=== PATIENT | female | born 1985 | race Caucasian/White ===

== ENCOUNTER 2016-07-11 10:30 | Emergency (ER) | payer OTHER ==
[~2016-07-11 10:30] MED LIST: ALBUTEROL MININEB NEB; ALBUTEROL17 GM INH; AZITHROMYCIN250 MG PO; FLEXERIL10 MG PO; HM ACETAMINOPH1 EAC1 PO; MEDROL DOSEPAK4 MG DOB; NAPROSYN500 MG PO; NEXIUM PO; PREDNISONE1 MG PO; PROZAC PO; PROZAC40 MG PO; SYMBICORT INH; TRAZODONE PO; VICODIN; VICODIN PO; VISTARIL PO
== END 2016-07-11 11:03 | disposition left against medical advice (07) ==
LOC: CED 10:30
DX: Z53.21 Procedure and treatment not carried out due to patient leaving prior to being seen by health care provider (principal)

== ENCOUNTER 2016-08-09 12:20 | Emergency (ER) | payer OTHER ==
--- NOTE | ~2016-08-09 | CR141 ---
[facility] A Service of [facility] & [facility] RADIOLOGY TEXT RESULTS PATIENT: DANII WILSON LOCATION: [facility] : 84 UNIT #: [id number] AGE: [address]: Jim Chris SEX: F ORDER DR: [id number] [facility] [address] [place], [place] [address] [id number] E MR#: [id number] Acc #: [id number] NAME: DANII WILSON : 1985 SEX: F STUDY DATE/TIME: 08/09/2016 UNIT: [place] ROOM: STUDY DESCRIPTION: CR Hand Min 3 Views Lt Attending Physician: Jim Chris Ordering Physician: Abhilash Phelps M.D. Primary Care Physician: [facility] MED[facility]AGING REPORT This report is preliminary unless electronic signature is present EXAM Left hand, 08/09/2016, 1206 hours. HISTORY 31-year-old woman who tripped and fell today, complaining of pain in the 5th finger radiating to the wrist since fall. COMPARISON None FINDINGS AP, lateral, and oblique views demonstrate normal bone density. No finger fracture is seen. The metacarpals and carpal bones are intact. IMPRESSION Negative left hand. Dictated by... Olinda Navarro M.D. THIS IS AN ELECTRONICALLY VERIFIED REPORT Olinda Navarro M.D. at 08/09/2016 2:29 PM Ania TD: 08/09/2016 14:07 JOB #: [id number] MEDICAL IMAGING REPORT Page 1 of 1 COPY
--- NOTE | ~2016-08-09 | CR278 ---
[facility] A Service of [facility] & [facility] RADIOLOGY TEXT RESULTS PATIENT: DANII WILSON LOCATION: [place] : 84 UNIT #: [id number] AGE: [address]: Jim Chris SEX: F ORDER DR: [id number] [facility] [address] [place], [place] [address] [id number] E MR#: [id number] Acc #: [id number] NAME: DANII WILSON. : 1985 SEX: F STUDY DATE/TIME: 08/09/2016 12:06 UNIT: [facility] ROOM: STUDY DESCRIPTION: CR Wrist 2 View Lt Attending Physician: Jim Chris Ordering Physician: Ed Doctor [id number] [facility] Primary Care Physician: [facility] MEDICAL IMAGING REPORT This report is preliminary unless electronic signature is present EXAM Left wrist 3 views 08/09/2016 1206 hours HISTORY Patient tripped and fell today complaining of pain in the fifth finger radiating to the wrist COMPARISON None. FINDINGS AP, lateral and oblique views demonstrate normal bone density. The distal radius and ulna, carpal bones and metacarpals are intact. IMPRESSION Negative left wrist. Dictated by... Olinda Navarro M.D. THIS IS AN ELECTRONICALLY VERIFIED REPORT Olinda Navarro M.D. at 08/09/2016 2:30 PM Faviola TD: 08/09/2016 13:32 JOB #: [id number] MEDICAL IMAGING REPORT Page 1 of 1 COPY
== END 2016-08-09 13:05 | disposition home or self-care (01) ==
LOC: CFTX 12:20
DX: S60.212A Contusion of left wrist, initial encounter (principal); F17.210 Nicotine dependence, cigarettes, uncomplicated; J44.9 Chronic obstructive pulmonary disease, unspecified; K21.9 Gastro-esophageal reflux disease without esophagitis; W06.XXXA Fall from bed, initial encounter; Y92.009 Unspecified place in unspecified non-institutional (private) residence as the place of occurrence of the external cause
CPT/HCPCS: 73100; 73130; 99283

== ENCOUNTER → 2016-08-17 00:58 | Emergency (ER) | payer OTHER ==
[~2016-08-17 00:58] MED LIST changes: +CLINORIL; +CYANOCOBAL1000 MCG/M INJ; +GABAPENTIN400 M2; +KLONOPIN0.5 MG PO; +NICOTINE PATCH1 EAC1 TOP; +PRILOSEC PO; +PROZAC40 M1 PO; +SEROQUEL400 MG PO; +TIZANIDINE HCL4 M1 PO; +TOPAMAX PO; +TUMS500 MG PO; +VITAMIN D250000 UNIT PO; +WALGREENS
== END | disposition left against medical advice (07) ==
LOC: CED 00:58
DX: Z53.21 Procedure and treatment not carried out due to patient leaving prior to being seen by health care provider (principal)

== ENCOUNTER 2016-08-17 19:16 | Emergency (ER) | payer OTHER ==
--- NOTE | ~2016-08-17 | CR141 ---
[facility] A Service [facility] RADIOLOGY TEXT RESULTS PATIENT: DANII WILSON LOCATION: [facility] : 84 UNIT #: [id number] AGE: [address]: LUIS SHERIDAN APRN SEX: F ORDER DR: [id number] [place] [id number] [facility]. [place], [place] [address] [id number] E MR#: [id number] Acc #: [id number] NAME: DANII WILSON. : 1985 SEX: F STUDY DATE/TIME: 08/17/2016 19:55 UNIT: [facility] ROOM: STUDY DESCRIPTION: CR Hand Min 3 Views Lt Attending Physician: Luis Sheridan Aprn Ordering Physician: Luis Sheridan Aprn Primary Care Physician: [facility] MEDICAL IMAGING REPORT This report is preliminary unless electronic signature is present EXAM Left hand 3 views. HISTORY 31-year-old female. Pain, swelling, bruising left hand and wrist. Smashed in car door two days ago. COMPARISON Left hand films 08/09/2016 FINDINGS Three views of the left hand demonstrate moderate soft tissue swelling over the dorsum of the hand and distal forearm. No fracture dislocation. No arthropathy. IMPRESSION Moderate soft tissue swelling over the dorsum of the hand and distal forearm. No visible fracture. Dictated by... Meño Castro M.D. THIS IS AN ELECTRONICALLY VERIFIED REPORT Meño Castro M.D. at 08/18/2016 3:33 PM IVETH/lorraine TD: 08/18/2016 07:15 JOB #: [id number] MEDICAL IMAGING REPORT [facility] A Service [facility] RADIOLOGY TEXT RESULTS PATIENT: DANII WILSON LOCATION: [facility] : 84 UNIT #: [id number] AGE: [address]: LUIS SHERIDAN APRN SEX: F ORDER DR: Page 1 of 1 COPY
--- NOTE | ~2016-08-17 | CR281 ---
[facility] A Service of [facility] & [facility] RADIOLOGY TEXT RESULTS PATIENT: DANII WILSON LOCATION: [facility] : 84 UNIT #: [id number] AGE: [address]: LUIS SHERIDAN APRN SEX: F ORDER DR: [id number] [facility] [address] [place], [place] [address] [id number] E MR#: [id number] Acc #: [id number] NAME: DANII WILSON. : 1985 SEX: F STUDY DATE/TIME: 08/17/2016 19:56 UNIT: [facility] ROOM: STUDY DESCRIPTION: CR Wrist Min 3 View Lt Attending Physician: Luis Sheridan Aprn Ordering Physician: Luis Sheridan Aprn Primary Care Physician: [facility]. MEDICAL IMAGING REPORT This report is preliminary unless electronic signature is present EXAM Left wrist., 3 views. HISTORY Slammed hand and wrist in car door 2 days ago. FINDINGS 3 views of the left wrist demonstrate soft tissue swelling over the distal forearm and dorsum of the hand. No visible fracture. Joint spaces maintained. Bone mineralization normal. Dictated by... Meño Castro M.D. THIS IS AN ELECTRONICALLY VERIFIED REPORT Meño Castro M.D. at 08/18/2016 3:33 PM IVETH/declan TD: 08/18/2016 07:21 JOB #: [id number] MEDICAL IMAGING REPORT Page 1 of 1 COPY
[~2016-08-17 19:16] MED LIST changes: -CLINORIL; -CYANOCOBAL1000 MCG/M INJ; -GABAPENTIN400 M2; -KLONOPIN0.5 MG PO; -NICOTINE PATCH1 EAC1 TOP; -PRILOSEC PO; -PROZAC40 M1 PO; -SEROQUEL400 MG PO; -TIZANIDINE HCL4 M1 PO; -TOPAMAX PO; -TUMS500 MG PO; -VITAMIN D250000 UNIT PO; -WALGREENS
== END 2016-08-17 20:55 | disposition home or self-care (01) ==
LOC: CFTX 19:16
DX: S60.212A Contusion of left wrist, initial encounter (principal); F17.210 Nicotine dependence, cigarettes, uncomplicated; J44.9 Chronic obstructive pulmonary disease, unspecified; J45.909 Unspecified asthma, uncomplicated; W23.0XXA Caught, crushed, jammed, or pinched between moving objects, initial encounter; Y92.009 Unspecified place in unspecified non-institutional (private) residence as the place of occurrence of the external cause
CPT/HCPCS: 29125; 73110; 73130; 99283

== ENCOUNTER 2016-09-15 12:35 | Inpatient (IN) | payer OTHER ==
--- NOTE | ~2016-09-15 | DS ---
Unit #: [id number] #: [id number] Patient: [facility] [id number] [facility] [address] [place] [address] [id number] I MR#: [id number] NAME: DANII DOWNING. ROOM: P130 Age: 31 Sex: F Admission Date: 09/15/2016 : 1985 Discharge Date: 09/22/2016 Attending Physician: Reggie Chakraborty M.D. Primary Care Physician: Selena Boyce M.D. DISCHARGE SUMMARY IDENTIFYING DATA Ms. Downing is a 31-year-old white female, who is a resident of [place], [place], and was self-referred to the hospital on a voluntary basis. DISCHARGE DIAGNOSES Psychiatric: Schizoaffective disorder, bipolar type, most recent episode depressed, recurrent, moderate, with psychosis; borderline personality disorder. Medical: Chronic obstructive pulmonary disease. Stressors: Moderate psychosocial stressors. HISTORY OF PRESENT ILLNESS Please see initial psychiatric evaluation for details. PAST PSYCHIATRIC HISTORY Please see initial psychiatric evaluation for details. PAST MEDICAL HISTORY Please see initial psychiatric evaluation for details. HOSPITAL COURSE The patient was admitted to the adult psychiatric unit at [facility] tresa Lester and was oriented to the hospital environment. Routine p.r.n. medications were initiated, and she was started back on her home medication; however, she was noticed to be a good candidate for a long-acting injectable antipsychotic due to her history of poor compliance with medications and as such, ruling out sensitivity to the molecule of risperidone, she was started on long-acting injectable antipsychotic in the form of Invega Sustenna and she was able to receive both the loading doses while on the unit and was able to show a fairly decent and therapeutic response with significant improvement in depression and anxiety and was seen to exhibit significant mood stability and no evidence of self-harm behavior was noticed and the patient wanting to go home and was willing to continue treatment on an outpatient basis and as such, it was decided that she will be discharged home and will continue treatment on an outpatient basis. DISCHARGE MEDICATIONS Klonopin 1 mg t.i.d. for anxiety, Protonix 40 mg a day for acid reflux, Topamax 100 mg at bedtime and 50 mg b.i.d. for mood disorder, Prozac 40 mg a day for depression, and Invega Sustenna 156 mg intramuscular every 30 days. Unit #: [id number] #: [id number] Patient: DAINI DOWNING DISCHARGE CONDITION Stable. PROGNOSIS Fair. Dictated by... Cassie Rubin/jessenia TD: 09/22/2016 06:54 JOB #: [id number] DISCHARGE SUMMARY Page 1 of 1 X Reggie Chakraborty MD X DISCHARGE SUMMARY
--- NOTE | ~2016-09-15 | PN ---
Unit #: [id number] #: [id number] Patient: DANII DOWNING [id number] [facility] [address] [place] [address] [id number] I MR#: [id number] NAME: DANII DOWNING. ROOM: P130 Age: 31 Sex: F Admission Date: 09/15/2016 : 1985 Attending Physician: Reggie Chakraborty M.D. Admitting Physician: Reggie Chakraborty M.D. Primary Care Physician: Cassie Irene PROGRESS NOTES DATE 09/21/2016 DISCUSSION Ms. Downing is a 31-year-old white female who was seen today and chart was reviewed and case was discussed with the staff. She has been doing fairly well and has received her second loading dose of (:22) without any tolerability issues and has been cooperative and compliant with treatment recommendations. MENTAL STATUS EXAMINATION Young white female who was casually dressed with fair personal hygiene appears to be in no acute distressed or discomfort. The patient was awake and alert with impaired attention and concentration. Her mood was anxious with congruent affect. She denies any suicidal or homicidal ideations. Also, denies any auditory or visual hallucinations. Her insight and judgement remains slightly impaired. TREATMENT PLAN 1. We will continue her on her current medications and treatment protocol. We will monitor her response to the medication and make further adjustments as needed. 2. We will continue to follow up. Dictated by... Cassie Rubin/estelita TD: 09/21/2016 23:36 JOB #: [id number] Unit #: [id number] #: [id number] Patient: DANII DOWNING PROGRESS NOTES Page 1 of 1 X Reggie Chakraborty MD X PROGRESS NOTE
--- NOTE | ~2016-09-15 | PN ---
Unit #: [id number] #: [id number] Patient: DANII DOWNING [id number] [facility] [address] [place] [address] [id number] I MR#: [id number] NAME: DANII DOWNING. ROOM: P130 Age: 31 Sex: F Admission Date: 09/15/2016 : 1985 Attending Physician: Reggie Chakraborty M.D. Admitting Physician: Reggie Chakraborty M.D. Primary Care Physician: Cassie Irene PROGRESS NOTES DATE OF SERVICE: 09/18/2016 SUBJECTIVE Ms. Downing is a 31-year-old white female, who was seen today and chart was reviewed and case was discussed with the staff. She has been anxious, withdrawn, though has been polite and pleasant and cooperative with treatment recommendation, taking medication, tolerating them fairly well with no reported side effects. MENTAL STATUS EXAMINATION Young white female, who was casually dressed with fair personal hygiene, appears to be in no acute distress or discomfort. She was awake and alert on interaction with intact orientation. Her mood was anxious with congruent effect. The patient denies any suicidal or homicidal ideations. Her insight and judgment remain slightly impaired. TREATMENT PLAN 1. We will continue her on current medications and treatment protocol. We will monitor her response to medications and make further adjustments as needed. 2. We will continue to follow up. Dictated by... Cassie Rubin/jessenia TD: 09/20/2016 06:54 JOB #: [id number] [facility] PROGRESS NOTES Page 1 of 1 X Reggie Chakraborty MD PROGRESS NOTE
--- NOTE | ~2016-09-15 | HP ---
Unit #: [id number] #: [id number] Patient: JUDIE WILSON [id number] [place] [address] [id number] I MR#: [id number] NAME: JUDIE WILSON. ROOM: 30 Age: 31 Sex: F Admission Date: 09/15/2016 : 1985 Attending Physician: Reggie Chakraborty M.D. Admitting Physician: Reggie Chakraborty M.D. Primary Care Physician: Selena Boyce M.D. HISTORY AND PHYSICAL HISTORY OF PRESENT ILLNESS Judie is a 31-year-old female admitted 09/15/[address] [place] [address] for psychosis and self-injuring behaviors. PAST MEDICAL HISTORY 1. Obesity. 2. COPD. 3. Scoliosis 4. GERD. PAST SURGICAL HISTORY Cholecystectomy. SOCIAL HISTORY Smokes at least a pack of cigarettes daily. No alcohol or illegal drug use. She is currently and living with her . FAMILY HISTORY Noncontributory. REVIEW OF SYSTEMS CONSTITUTIONAL: No fever or chills. HEENT: Denies any sore throat, ear pain or runny nose. CARDIOVASCULAR: Denies chest pain, irregular heart rhythm or palpitations. CHEST: Denies shortness of breath or cough. No hemoptysis. GASTROINTESTINAL: Denies nausea, vomiting, diarrhea or chronic constipation. ENDOCRINE: Denies history of increased thirst or urination. No recent significant weight loss or gain. GENITOURINARY: Denies dysuria, frequency, or hematuria. SKIN: Denies any rashes. HEMATOLOGIC: Denies history of increased bleeding or bruising. MUSCULOSKELETAL: Denies any hot, swollen joints. No generalized muscle pain. NEUROLOGIC: Denies problems with vision or speech. No frequent, severe headaches. No numbness, tingling or weakness in any extremities. Denies loss of bladder or bowel control. CURRENT MEDICATIONS 1. Clonazepam 2. Omeprazole Unit #: [id number] #: [id number] Patient: JUDIE WILSON 3. Topiramate 4. Fluoxetine 5. Seroquel ALLERGIES No known drug allergies. PHYSICAL EXAMINATION GENERAL: Alert, oriented, in no acute distress. VITAL SIGNS: Blood pressure 90/75, heart rate 89, respirations 18. HEIGHT: 5 foot 5 inches. WEIGHT: 285 pounds. SKIN: Warm and dry without rash or lesion. HEENT: Normocephalic. TMs not viewed. Oral and nasal passages clear. Conjunctivae clear. PERRLA. EOMs intact. NECK: Supple without lymphadenopathy or thyromegaly. HEART: Regular rate and rhythm without murmur. LUNGS: Clear. ABDOMEN: Soft, nontender, without masses or hepatosplenomegaly. : Not done. EXTREMITIES: No evidence of cyanosis, clubbing or edema. Moves all without focal deficit. NEUROLOGICAL: Grossly within normal limits. Cranial Nerves: II: Visual dwyer are intact. III, IV AND : Extraocular movements are intact. Pupils are equal, round and reactive to light. V: Facial sensation is grossly normal. VII: Facial movements and expression are normal. VIII: Auditory acuity grossly intact. IX, X: Uvula is midline. Phonation is normal. XI: Patient shrugs shoulders and turns head normally. XII: Tongue protrudes in the midline. Sensory and Motor Function: Sensory and motor sensation is grossly normal. Motor: moves all extremities well. Coordination: Gait is normal. Deep Tendon Reflexes: Intact. IMPRESSION 1. Psychiatric admission. 2. Obesity. 3. COPD. 4. Scoliosis. 5. GERD. RECOMMENDATIONS Psychiatric, per psychiatrist. MEDICAL: I see no contraindications to participating in facility's activities. MEDICAL PROGNOSIS Good. MEDICAL CONDITION Stable. Dictated by... Unit #: [id number] #: [id number] Patient: STEVEJUDIEPatricia Godoy TD: 09/16/2016 21:13 JOB #: [id number] HISTORY AND PHYSICAL Page 1 of 1 X MO DOVE APRN HISTORY AND PHYSICAL
--- NOTE | ~2016-09-15 | PN ---
Unit #: [id number] #: [id number] Patient: DANII DOWNING [id number] [facility] [address] [place] [address] [id number] I MR#: [id number] NAME: DANII DOWNING. ROOM: P130 Age: 31 Sex: F Admission Date: 09/15/2016 : 1985 Attending Physician: Reggie Chakraborty M.D. Admitting Physician: Reggie Chakraborty M.D. Primary Care Physician: Cassie Irene PROGRESS NOTES DATE 09/15/2016 DISCUSSION Ms. Downing is a 31-year-old white female who was seen today and chart was reviewed and case was discussed with the staff. She has been anxious, withdrawn and rather seclusive to herself and appears to be very withdrawn. Meanwhile, she has not shown any agitation or aggression and has been taking the medications and tolerating them fairly well with no reported side effects. MENTAL STATUS EXAMINATION Young white female who was casually dressed with fair personal hygiene, appears to be in no acute distress or discomfort. She was awake and alert intact orientation. Her mood was anxious and depressed with congruent affect. She reports having suicidal ideation though her insight and judgement remains slightly impaired. TREATMENT PLAN 1. We will adjust her medication and monitor her response. 2. We will continue to follow up. Dictated by... Cassie Rubin/estelita TD: 09/17/2016 02:13 JOB #: [id number] Unit #: [id number] #: [id number] Patient: DANII DOWNING PROGRESS NOTES Page 1 of 1 X Reggie Chakraborty MD X PROGRESS NOTE
--- NOTE | ~2016-09-15 | PN ---
Unit #: [id number] #: [id number] Patient: DANII DOWNING [id number] [facility] [address] [place] [address] [id number] I MR#: [id number] NAME: DANII DOWNING. ROOM: P130 Age: 31 Sex: F Admission Date: 09/15/2016 : 1985 Attending Physician: Reggie Chakraborty M.D. Admitting Physician: Reggie Chakraborty M.D. Primary Care Physician: Cassie Irene PROGRESS NOTES DATE 09/17/2016 DISCUSSION Ms. Downing is a 31-year-old white female who was seen today and chart was reviewed and case was discussed with the staff. She has been anxious, withdrawn and rather seclusive to herself though appears to be doing better than yesterday and reports having had a better day yesterday. Patient has been taking medications and tolerating them fairly well with no reported side effects. MENTAL STATUS EXAMINATION Middle-aged white female who was casually dressed with fair personal hygiene and appears to be in no acute distress or discomfort. She was awake and alert on interaction with intact orientation. Her mood was anxious with congruent affect. She denies any suicidal or homicidal ideation. Her insight and judgement remains slightly impaired. TREATMENT PLAN 1. Will continue on current medications and treatment protocol and will monitor his response to the medications and make further adjustments as needed. 2. Will continue to follow up. Dictated by... Cassie Rubin/belen TD: 09/18/2016 22:47 JOB #: [id number] Unit #: [id number] #: [id number] Patient: DANII DOWNING PROGRESS NOTES Page 1 of 1 X Reggie Chakraborty MD PROGRESS NOTE
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
--- NOTE | ~2016-09-15 | CR132 ---
[facility] A Service [facility] RADIOLOGY TEXT RESULTS PATIENT: DANII WILSON LOCATION: P1S : 84 UNIT #: [id number] AGE: [address]: Reggie Chakraborty MD SEX: F ORDER DR: [id number] [address] [address] [id number] I MR#: [id number] Acc #: [id number] NAME: DANII WILSON. : 1985 SEX: F STUDY DATE/TIME: 09/15/2016 18:54 UNIT: S ROOM: [facility] STUDY DESCRIPTION: CR Forearm 2 View Lt Attending Physician: Reggie Chakraborty M.D. Ordering Physician: Reggie Chakraborty M.D. Primary Care Physician: Selena Boyce M.D. MEDICAL IMAGING REPORT This report is preliminary unless electronic signature is present EXAM Left forearm. DATE OF EXAM 09/15/2016 HISTORY 31-year-old female with left forearm pain after hitting forearm with hammer on 09/13/2016, and 09/14/2016. COMPARISON None. FINDINGS 2 views of the left forearm demonstrate no acute fracture or dislocation. There is [id number] generalized soft tissue swelling throughout the forearm. IMPRESSION Mild to moderate soft-tissue swelling throughout the forearm. No acute fracture or dislocation. Dictated by... Jean Carlos Mcleod M.D. THIS IS AN ELECTRONICALLY VERIFIED REPORT Jean Carlos Mcleod M.D. at 09/15/2016 10:54 PM BERONICA/radha TD: 09/15/2016 22:15 JOB #: [id number] [facility] A Service [facility] RADIOLOGY TEXT RESULTS PATIENT: DANII WILSON LOCATION: P1S : 84 UNIT #: [id number] AGE: [address]: Reggie Chakraborty MD SEX: F ORDER DR: MEDICAL IMAGING REPORT Page 1 of 1 COPY
--- NOTE | ~2016-09-15 | PN ---
Unit #: [id number] #: [id number] Patient: DANII DOWNING [id number] [facility] [address] [place] [address] [id number] I MR#: [id number] NAME: DANII DOWNING. ROOM: P130 Age: 31 Sex: F Admission Date: 09/15/2016 : 1985 Attending Physician: Reggie Chakraborty M.D. Admitting Physician: Reggie Chakraborty M.D. Primary Care Physician: Cassie Irene PROGRESS NOTES DATE September 20, 2016 DISCUSSION Ms. Downing is a 31-year-old white female. who was seen today and chart was reviewed and the case was discussed with the staff. She has been anxious, withdrawn, and rather seclusive to herself. Meanwhile, she has been cooperative with the treatment recommendations and she has been taking the medications and tolerating them fairly well with no reported side effects. MENTAL STATUS EXAMINATION Young white female, who was casually dressed with fair personal hygiene and appears to be in no acute distress or discomfort. The patient was awake and alert on interaction with intact orientation. Her mood was anxious with a congruent affect. She denies any suicidal or homicidal ideations. Her insight and judgment remain slightly impaired. TREATMENT PLAN 1. We will continue her on her current medications and treatment protocol, and will monitor her response to the medications, and make further adjustments as needed. 2. We will continue to followup. Dictated by... Cassie Rubin/izzy TD: 09/20/2016 11:46 JOB #: [id number] Unit #: [id number] #: [id number] Patient: DANII DOWNING PROGRESS NOTES Page 1 of 1 X Reggie Chakraborty MD PROGRESS NOTE
--- NOTE | ~2016-09-15 | PN ---
Unit #: [id number] #: [id number] Patient: DANII DOWNING [id number] [facility] [address] [place] [address] [id number] I MR#: [id number] NAME: DANII DOWNING. ROOM: P130 Age: 31 Sex: F Admission Date: 09/15/2016 : 1985 Attending Physician: Reggie Chakraborty M.D. Admitting Physician: Reggie Chakraborty M.D. Primary Care Physician: Cassie Irene PROGRESS NOTES DATE September 19, 2016 DISCUSSION Ms. Downing is a 31-year-old white female, who was seen today and chart was reviewed and the case was discussed with the staff. The patient has been anxious, withdrawn, depressed, and rather seclusive to herself. Meanwhile, she has been taking the medications and tolerating them fairly well with no reported side effects. MENTAL STATUS EXAMINATION Young white female, who was casually dressed with fair personal hygiene and appears to be in no acute distress or discomfort. She was awake and alert on interaction with intact orientation. Her mood was anxious with a congruent affect. The patient denies any suicidal or homicidal ideations. Her insight and judgment remain slightly impaired. TREATMENT PLAN 1. We will continue her on her current medications and treatment protocol, and will monitor her response to the medications, and make further adjustments as needed. 2. We will continue to followup. Dictated by... Cassie Rubin/izzy TD: 09/20/2016 11:25 JOB #: [id number] Unit #: [id number] #: [id number] Patient: DANII DOWNING PROGRESS NOTES Page 1 of 1 X Reggie Chakraborty MD X PROGRESS NOTE
[2016-09-16 09:56] LABS: BASOPHIL# 0.1 X10e3 (0-0.3); EOSINOPHIL# 0.4 X10e3 (0-0.7); EOSINOPHIL% 3.6 % (0.0-7.0); HEMATOCRIT 41.2 % (35.0-45.0); HEMOGLOBIN 13.4 gm/dL (12.0-16.0); LYMPHOCYTE# 4.2 X10e3 (1.0-3.5); LYMPHOCYTE% 41.3 % (17.0-45.0); MEAN CELL VOLUME 91.2 FL (83-96); MEAN CORPUSCULAR HEMOGLOBIN 29.6 PG (28-34); MEAN CORPUSCULAR HGB CONC 32.5 g/dL (30-36); MEAN PLATELET VOLUME 10.8 FL (6.5-11.5); MONOCYTE# 0.8 X10e3 (0-1.0); MONOCYTE% 8.4 % (3.0-12.0); NEUTROPHIL# 4.6 X10e3 (1.5-7.1); NEUTROPHIL% 45.7 % (40-75); PLATELET COUNT 223 X10e3 (140-420); RED BLOOD COUNT 4.51 X10e (3.90-5.30); RED CELL DISTRIBUTION WIDTH 14.1 % (11.0-15.5); WHITE BLOOD COUNT 10.1 X10e3 (4.0-10.5)
[2016-09-16 10:33] LABS: ALBUMIN SERUM 3.8 g/dL (3.5-5.0); BILIRUBIN,TOTAL 0.2 mg/dL (0.2-2.0); BUN/CREATININE RATIO 12.22; CALCIUM SERUM 9.2 mg/dL (8.4-10.2); CREATININE SERUM 0.9 mg/dL (0.6-1.4); GLOM FILT RATE Estimated 84.7 mL/min (>60); POTASSIUM 3.9 mmol/L (3.5-5.1); PROTEIN TOTAL SERUM 7.2 g/dL (6.0-8.3)
[2016-09-16 10:35] LABS: DIFF IND NO
[2016-09-16 11:40] LABS: THYROID STIMULATING HORMONE 5.85 uIU/ml (0.34-5.60)
[2016-09-16 11:46] LABS: FREE THYROXIN (T4) 0.6 ng/dL (0.58-1.64)
== END 2016-09-22 10:00 | DRG 885 ==
LOC: P1S 16:01
PROVIDERS: Psychiatry & Neurology Psychiatry
DX: F31.5 Bipolar disorder, current episode depressed, severe, with psychotic features (principal); M41.9 Scoliosis, unspecified; J44.9 Chronic obstructive pulmonary disease, unspecified; F60.3 Borderline personality disorder; Z91.14 Patient's other noncompliance with medication regimen; K21.9 Gastro-esophageal reflux disease without esophagitis; E66.9 Obesity, unspecified; F17.210 Nicotine dependence, cigarettes, uncomplicated
CPT/HCPCS: 73090; 80053; 84439; 84443; 84703; 85025

== ENCOUNTER 2016-12-11 20:38 | Inpatient (IN) | payer OTHER ==
--- NOTE | ~2016-12-11 | BMI ---
[facility] Therapy DATE: 12/13/16 Patient: DANII WILSON Physician: LUIS ENRIQUE Address: [address] [place], [place] [address]MART DAVIDOrion Room/Bed: [address] [place] [address], Zip: [place] [address] Admit Date: 12/12/16 Date of : [birth year] Height: Weight: 275 125 HIGH BMI NOTE: DX: 31 Y.O. FEMALE ADMITTED FOR RHABDOMYLOSIS ANTHROPOMETRICS: 5'5", WT: 270# (123 KG), BMI: 44.9 DIET: REGULAR RECOMMENDATIONS: 1. RECOMMEND TO CHANGE CURRENT DIET ORDER TO HEALTHY HEART TO PROMOTE GRADUAL WEIGHT LOSS TOWARDS HEALTHY BMI (19.0-25.0) OR +/-10%IBW RD WILL F/U PER PROTOCOL Respectfully, BATSHEVA GIPSON MS, RD, LD [facility] cc: client file
--- NOTE | ~2016-12-11 | DS ---
Unit #: [id number] #: [id number] Patient: DANII WILSON [id number] [address] [address] [id number] I MR#: [id number] NAME: DANII WILSON. ROOM: 562 Age: 31 Sex: F Admission Date: 12/12/2016 : 1985 Discharge Date: Attending Physician: Laverne Doyle M.D. Primary Care Physician: Selena Boyce M.D. DISCHARGE SUMMARY DISCHARGE DIAGNOSES 1. Right side weakness, likely secondary to vitamin B12 deficiency with nonspecific other symptoms. No transient ischemic attack and no cerebrovascular accident. 2. Acute on chronic back pain. X-ray of the lumbar spine negative. 3. History of seizures, stable. 4. Acute rhabdomyolysis. 5. History of depression. 6. Bipolar. 7. Morbid obesity. 8. Mild elevated thyroid stimulating hormone. 9. Mild protein malnutrition. 10. Mild metabolic acidosis. 11. Mild hypocalcemia. CONSULTATION Dr. Grady. PROCEDURES None. DIAGNOSTIC STUDIES LAB DATA: WBC 9.4, hemoglobin 11.2, platelets 229. Sodium 139, potassium 3.7, creatinine 0.6. CK 723. Albumin 2.8. Vitamin B12 is 102. TSH 6.30. Free T4 is normal at 0.60. Urine drug screen positive for benzodiazepine and TCA. Urinalysis shows no infection. IMAGING: X-ray of the lumbar spine negative. CAT scan of the abdomen and pelvis shows negative. CT of the head negative. ALLERGIES None. DISCHARGE MEDICATION 1. Topamax 100 mg p.o. three times daily. 2. Prozac 40 mg daily. 3. Seroquel 400 mg at bedtime. 4. Klonopin 1 mg three times daily. 5. Prilosec 40 mg daily. 6. Vitamin D2 50,000 units weekly. 7. Calcium carbonate 500 mg three times daily p.r.n. for acid. 8. Vitamin B12 1,000 mcg subcu daily for seven days followed by weekly. HOSPITALIZATION COURSE Unit #: [id number] #: [id number] Patient: DANII WILSON A 31 year old admitted because of right side weakness and leaning towards the right side. Patient seen by Neurology. According to Neurology, no neurological issues, likely from B12 deficiency. The patient did receive B12 here. The patient will be discharged on B12. Home health to give injections as per family request. Acute rhabdomyolysis: The patient received IV fluids. Currently, CK is trending down. History of seizures: Continue with current medications, Topamax, and she is also on Klonopin. History of hypothyroidism: Currently, her TSH is mildly elevated but free T4 is normal. Follow outpatient with PCP regarding that. I will not start her on any thyroid medication. Discussed with family. Discharged home with home health. Follow with family physician in one to two week's time. Dictated by... Cassie Lemus/roxana TD: 12/13/2016 14:14 JOB #: [id number] DISCHARGE SUMMARY Page 1 of 1 X Laverne Doyle MD DISCHARGE SUMMARY
--- NOTE | ~2016-12-11 | CR181 ---
[facility] A Service of [facility] & [facility] RADIOLOGY TEXT RESULTS PATIENT: DANII WILSON LOCATION: [place] [address]- : [birth year] UNIT #: [id number] AGE: [address]: Laverne Doyle MD SEX: F ORDER DR: [id number] [facility] [address] [place], [place] [address] [id number] I MR#: [id number] Acc #: [id number] NAME: DANII WILSON. : 1985 SEX: F STUDY DATE/TIME: 12/12/2016 0:38 UNIT: [facility] ROOM: [facility] STUDY DESCRIPTION: CR Lumbar Spine 2 or 3 Views Attending Physician: Laverne Doyle M.D. Ordering Physician: Imtiaz Mcgee D.O. Primary Care Physician: Selena Boyce M.D. MEDICAL IMAGING REPORT This report is preliminary unless electronic signature is present EXAM Lumbar spine series 12/12/2016 HISTORY 31-year-old female in the ED with multiple complaints including several week history of low back and right leg pain. She notes a previous fall. TECHNIQUE Three-view lumbar spine series. FINDINGS The examination is negative. No acute or chronic fracture deformity is demonstrated. Lumbar disc spaces and lumbar vertebral alignment are within normal limits. IMPRESSION Negative lumbar spine series. Dictated by... Pedro Black M.D. THIS IS AN ELECTRONICALLY VERIFIED REPORT Pedro Black M.D. at 12/12/2016 10:02 PM SADIE/cherie TD: 12/12/2016 03:29 JOB #: [id number] MEDICAL IMAGING REPORT Page 1 of 1 COPY
--- NOTE | ~2016-12-11 | HP ---
Unit #: [id number] #: [id number] Patient: DANII WILSON [id number] [address] [address] [id number] I MR#: [id number] NAME: DANII WILSON. ROOM: 562 Age: 31 Sex: F Admission Date: 12/12/2016 : 1985 Attending Physician: Laverne Doyle M.D. Primary Care Physician: Selena Boyce M.D. HISTORY AND PHYSICAL CHIEF COMPLAINT Leaning towards the right side. HISTORY OF PRESENT ILLNESS 31-year-old with a history of scoliosis, depression and bipolar, admitted because of leaning towards right side. According to her, it started yesterday, one day prior to the admission. She noticed that when she is walking and sitting, she is leaning towards the right. She does complain of bilateral leg weakness since a few days. She always has back pain chronically. No dizziness, no passing out. ER does notice slurred speech but when I talk to the family they said she might had that kind of a speech chronically. No seizures, no syncope, no chest pain, no shortness of breath, no nausea, vomiting, diarrhea or constipation. PAST MEDICAL HISTORY 1. History of borderline personality, likely bipolar. 2. Scoliosis. 3. Asthma. 4. COPD. 5. Degenerative joint disease. 6. History of seizures. 7. Hypothyroidism. 8. History of suicidal attempt. 9. Seizures. SURGICAL HISTORY 1. Adenoidectomy. 2. Laparoscopic cholecystectomy with removing the gallbladder. ALLERGIES None. CURRENT HOME MEDICATIONS 1. Tizanidine 4 mg p.o. daily. 2. Prozac 40 daily. 3. Klonopin 0.5 p.o. daily. 4. Sulindac, dose unknown. 5. Gabapentin, dose unknown. SOCIAL HISTORY Smokes half pack of cigarettes per day. No alcohol, no drugs. FAMILY HISTORY Positive for hypertension. Unit #: [id number] #: [id number] Patient: DANII WILSON REVIEW OF SYSTEMS No headache, no visual changes, no skin rash, no leg swelling. Reviewed twelve point system with her which are negative except as in HPI. PHYSICAL EXAMINATION VITAL SIGNS: Temperature 97.7, pulse 79, respirations 20, blood pressure 96/73. GENERAL: 31-year-old lying in bed, alert and oriented x3 with mild slurred speech. Able to provide history. HEENT: Pupils equally react to light and accommodation. Dry mucosa present. No nystagmus. HEART: S1, S2 heard. No murmurs. Clear to auscultation bilaterally. LUNGS: No rhonchi, no crackles. ABDOMEN: Soft, nontender. Bowel sounds present. EXTREMITIES: No pedal edema. SKIN: No rash. NEUROLOGICAL: Patient has mild slurred speech. Motor examination is slight weakness on the right side. May be 4/5 to 5/5. Left side is normal. LAB DATA CT of the head negative. Lumbar spine negative. Sodium 140, potassium 3.5, creatinine 0.7. CK 2109. Urine drug screen positive for benzodiazepine and TCA. Urinalysis negative for infection. Beta hCG negative. CT abdomen and pelvis negative. CT head negative. EKG shows normal sinus rhythm. ASSESSMENT AND PLAN 1. Right sided weakness: Rule out neurological deficits. CT of the head is negative. Neurology consulted. 2. Back pain, acute on chronic: X-ray of the lumbar spine negative with bilateral leg weakness. Consult PT/OT. 3. History of seizures: I am not sure what medicines she takes. I am going to get her complete home medication list. 4. Acute rhabdomyolysis: The patient is started on IV fluids. Continue to monitor CK. 5. History of depression and bipolar, stable: Continue holding her current medications for now. 6. Morbid obesity. 7. History of likely thyroid problems: I am going to check TSH. Dictated by Laverne Doyle M.D. Unit #: [id number] #: [id number] Patient: DANII WILSON Milla MITCHELL/batsheva TD: 12/12/2016 11:46 JOB #: [id number] HISTORY AND PHYSICAL Page 1 of 1 X Laverne Doyle MD HISTORY AND PHYSICAL
--- NOTE | ~2016-12-11 | CO ---
Unit #: [id number] #: [id number] Patient: DANII WILSON [id number] [facility] [address] [facility]. [place], [place] [address] [id number] MR#: [id number] NAME: DANII WILSON. ROOM: 562 Age: 31 Sex: F Admission Date: 12/12/2016 : 1985 Attending Physician: Laverne Doyle M.D. Primary Care Physician: Selena Boyce M.D. Requesting Physician: Laverne Doyle M.D. Consultation Date: 12/13/2016 CONSULTATION REPORT REASON FOR CONSULTATION Leaning to the right side and low back pain. PATIENT IDENTIFICATION This is a 31-year-old right-handed white female who was evaluated in room 562 at [facility]. SOURCE OF INFORMATION The patient and evaluation done by admitting team and others. PROBLEM LIST 1. Asthma. 2. Chronic obstructive pulmonary disease. 3. Degenerative joint disease. 4. Question about seizure. 5. Hypothyroidism. 6. Suicide attempt. 7. History of borderline personality disorder. Likely bipolar. 8. Scoliosis. HISTORY OF PRESENT ILLNESS This is a very pleasant 31-year-old female who actually presented with episodes of what she calls listing toward the right side. She did not report weakness. She did not report sensory changes. She had some back pain, but no radiation. It was on and off and she is doing well and wants to go home. Again, no ataxia reported. Nothing on the face. Nothing on the upper extremities. No double vision. No speech, swallowing or breathing problems. She felt like she was drugged. No seizures, focal or generalized. No change in medication. No falls. Her back pain is not really bad and looking at her records she has been evaluated by this emergency room also in June with MRI and it does not look bad. No bowel or bladder symptoms. No migraines. No headaches. As mentioned before, she is doing well and wants to go home. Nothing suggesting TIA. Otherwise her head CT was okay. PAST MEDICAL HISTORY As discussed above. PAST SURGICAL HISTORY 1. She has had adenoidectomy. 2. Laparoscopic cholecystectomy with removal of her gallbladder. SOCIAL HISTORY Unit #: [id number] #: [id number] Patient: DANII WILSON She is living at home. She smokes about a half pack of cigarettes daily. She denies any alcohol or drug use. FAMILY HISTORY Hypertension. ALLERGIES No known drug allergies. HOME MEDICATIONS 1. Tizanidine. 2. Prozac. 3. Klonopin 0.5 mg p.o. daily. 4. Sulindac 200 mg. 5. Gabapentin. 6. Topamax 100 mg p.o. t.i.d. 7. Prilosec. 8. Seroquel. REVIEW OF SYSTEMS Detailed review of systems was done and the patient denies any sleep issues, fever, chills, rigors. HEENT: No headaches. No double vision, earache or runny nose. No sore throat. CARDIOVASCULAR: No chest pain, clubbing, cyanosis, orthopnea or palpitations. PULMONARY: No shortness of air, cough or expectoration. GI: No nausea, vomiting, diarrhea or constipation. : No symptoms. EXTREMITIES: No problems any more. SPINE: No back problems any more. PSYCHIATRY: No issues. NEUROLOGIC: No issues. HEMATOLOGIC, DERMATOLOGIC, ENDOCRINE: No issues known to me. She has morbid obesity. Her weight is 125 kg. PHYSICAL EXAMINATION VITALS: Temperature 98.4, pulse 95, respiratory rate 18, blood pressure 120/75, O2 saturations 94%-100%. Weight 125 kg. NEUROLOGIC EXAMINATION The patient is awake. She is alert. She is oriented. She can name. She can follow commands. No right/left confusion. No finger agnosia. CRANIAL NERVES: Full dwyer of vision to confrontation. Eye movements are conjugate. I do not see any ptosis. I do not see any nystagmus. Extraocular movements are intact. Sensations of the face and scalp are normal. Central muscles of facial expression are normal. Hearing seems to be intact bilaterally. Tongue was midline. Uvula midline. Palate elevation normal. Head turning and shoulder shrug are unremarkable. MOTOR: Normal bulk, tone. Strength is essentially 5/5. No pronator drift. No fine motor movement abnormalities. SENSORY: Intact for soft touch and pain sensation. No extinction was seen. ROMBERG: Not done. GAIT: Deferred. REFLEXES: I could not get any reflexes. Toes are downgoing. COORDINATION: Normal, [id number] and xkhj-xh-rrma bilaterally. Unit #: [id number] #: [id number] Patient: DANII WILSON DIAGNOSTIC STUDIES IMAGING: Head CT was reported as unremarkable. LABORATORY: CO2 20, protein 5.6, albumin 2.8. CK 723. It was 2,129 when she came in. B12 was 102. TSH was 6.30. White count was 9.4. Hemoglobin 11.2, hematocrit 34.2, platelet count 229. Urine drug screen was positive for benzos and tricyclics and she does have prescriptions. Urinalysis was unremarkable. ASSESSMENT/PLAN This is a very interesting 31-year-old female with what could be ataxia or otherwise very nonspecific. The only thing I could find in her history, the physical and labs is that she has critical low B12 levels. I do recommend aggressive B12 placement. This was off and on. It does not sound like TIA. It does not sound like a seizure. Her back is not a problem like right now. There is no radiation or anything, so at present I will leave everything as is, do B12 supplements aggressively with subcutaneous and intramuscular replacement at least for 7-14 days and then once a week for several weeks and then once a month and have it followed up and based on that decide how things go. If thing do not improve, then I do recommend MRI of the lumbar spine and also maybe do a TIA workup, but this does not look like a TIA. I gave her the option of MRI or the brain and CTA, but she is doing fine and wants to go home, so I told the nurse to have physical therapy and occupational therapy walk her and if she can then she can go. Call me with any others questions or concerns. Dictated by... Cassie Munoz TD: 12/13/2016 12:29 JOB #: [id number] CONSULTATION REPORT Page 1 of 1 X Erika Grady MD CONSULTATION REPORT
--- NOTE | ~2016-12-11 | EKG ---
PATIENT: DANII WILSON UNIT #: [id number] Ventricular Rate: 83 BPM Atrial Rate: 83 BPM P-R Interval: 146 ms QRS Duration: 80 ms Q-T Interval: 412 ms QTC Calculation(Bezet): 484 ms P [place]: 39 degrees Calculated R [place]: 30 degrees Calculated T [place]: 42 degrees Diagnosis Line: Normal sinus rhythm Diagnosis Line: Possible Left atrial enlargement Diagnosis Line: Prolonged QT Diagnosis Line: Abnormal ECG Diagnosis Line: When compared with ECG of 01-JUL-2016 14:27, Diagnosis Line: No significant change was found Diagnosis Line: Confirmed by JESSIE MENCHACA MD ([id number]) on 12/14/2016 Diagnosis Line: 10:43:32 PM INTERPRETING MD: BERNARDA WALL
--- NOTE | ~2016-12-11 | CT71 ---
[facility] A Service of [facility] RADIOLOGY TEXT RESULTS PATIENT: DANII WILSON LOCATION: [facility] 562- : [birth year] UNIT #: [id number] AGE: [address]: Cameron Wu MD SEX: F ORDER DR: [id number] [facility] [address] [facility]. [place], [place] [address] [id number] I MR#: [id number] Acc #: [id number] NAME: DANII WILSON. : 1985 SEX: F STUDY DATE/TIME: 12/12/2016 0:08 UNIT: CEDOF ROOM: 07196 STUDY DESCRIPTION: CT Head Wo Contrast Attending Physician: Cameron Wu M.D. Ordering Physician: Imtiaz Mcgee D.O. Primary Care Physician: Selena Boyce M.D. MEDICAL IMAGING REPORT This report is preliminary unless electronic signature is present EXAM CT head, noncontrast, 12/12/2016 HISTORY 31-year-old female in the ED complaining of lightheadedness and new onset right leg pain and low back pain beginning this evening. TECHNIQUE CT examination of the head without IV contrast. This CT exam was performed with one or more of the following radiation dose reduction techniques: automatic control, adjustment of mA and/or kV according to patient size, and iterative reconstruction. FINDINGS The examination is negative. No evidence of intracranial hemorrhage, mass, mass effect, cerebral edema, hydrocephalus or additional abnormality. IMPRESSION Negative head CT examination. Dictated by... Pedro Black M.D. THIS IS AN ELECTRONICALLY VERIFIED REPORT Pedro Black M.D. at 12/12/2016 5:26 AM SADIE/cherie TD: 12/12/2016 02:53 JOB #: [id number] MEDICAL IMAGING REPORT Page 1 of 1 COPY
--- NOTE | ~2016-12-11 | CT4 ---
[facility] A Service of [facility] RADIOLOGY TEXT RESULTS PATIENT: DANII WILSON LOCATION: [facility] [address] : [birth year] UNIT #: [id number] AGE: [address]: Cameron Wu MD SEX: F ORDER DR: [id number] [facility] [address] [facility]. [place], [place] [address] [id number] I MR#: [id number] Acc #: [id number] NAME: DANII WILSON. : 1985 SEX: F STUDY DATE/TIME: 12/12/2016 0:11 UNIT: CEDOF ROOM: [id number] STUDY DESCRIPTION: CT Abd and Pelv Wo Cont Attending Physician: Cameron Wu M.D. Ordering Physician: Imtiaz Mcgee D.O. Primary Care Physician: Selena Boyce M.D. MEDICAL IMAGING REPORT This report is preliminary unless electronic signature is present EXAM CT abdomen and pelvis, noncontrast kidney stone protocol, 12/12/2016 HISTORY 31-year-old female in the ED with multiple complaints including new onset lightheadedness low back pain and right leg pain. The patient notes a 1-day history of right flank pain. TECHNIQUE CT examination of the abdomen and pelvis without oral or IV contrast using kidney stone protocol. EXAM ABDOMEN FINDINGS: Both kidneys, both ureters and the urinary bladder are normal in noncontrast CT appearance. No visible nephrolithiasis or evidence of urinary obstruction. Cholelithiasis. No bile duct dilatation. Liver, pancreas and spleen are within normal limits. Small bowel and colon are normal in caliber and appearance, as imaged. Normal appendix. PELVIS FINDINGS: Uterus, ovaries, urinary bladder and rectum are negative. No inguinal hernia. Limited lung base images show no active disease in the lower chest. IMPRESSION 1. Negative noncontrast CT examination of the abdomen and pelvis. 2. Cholecystectomy. Dictated by... [facility] A Service [facility] RADIOLOGY TEXT RESULTS PATIENT: DANII WILSON LOCATION: [facility] 5606-09 : [birth year] UNIT #: [id number] AGE: [address]: Cameron Wu MD SEX: F ORDER DR: Pedro Black M.D. THIS IS AN ELECTRONICALLY VERIFIED REPORT Pedro Black M.D. at 12/12/2016 5:26 AM SADIE/cherie TD: 12/12/2016 03:17 JOB #: [id number] MEDICAL IMAGING REPORT Page 1 of 1 COPY
[2016-12-11 22:39] LABS: BASOPHIL# 0.1 X10e3 (0-0.3); BASOPHIL% 1.1 % (0-2.5); EOSINOPHIL# 0.4 X10e3 (0-0.7); EOSINOPHIL% 3.7 % (0.0-7.0); HEMATOCRIT 39.8 % (35.0-45.0); HEMOGLOBIN 12.9 gm/dL (12.0-16.0); LYMPHOCYTE# 2.7 X10e3 (1.0-3.5); LYMPHOCYTE% 22.8 % (17.0-45.0); MEAN CELL VOLUME 92.3 FL (83-96); MEAN CORPUSCULAR HEMOGLOBIN 29.8 PG (28-34); MEAN CORPUSCULAR HGB CONC 32.3 g/dL (30-36); MEAN PLATELET VOLUME 8.8 FL (6.5-11.5); MONOCYTE# 1.1 X10e3 (0-1.0); MONOCYTE% 9.7 % (3.0-12.0); NEUTROPHIL# 7.4 X10e3 (1.5-7.1); NEUTROPHIL% 62.7 % (40-75); PLATELET COUNT 257 X10e3 (140-420); RED BLOOD COUNT 4.32 X10e (3.90-5.30); RED CELL DISTRIBUTION WIDTH 14.6 % (11.0-15.5); WHITE BLOOD COUNT 11.8 X10e3 (4.0-10.5)
[2016-12-11 22:40] LABS: DIFF IND NO
[2016-12-11 22:41] LABS: POC - CKMB 14.9 ng/mL (0.0-7.9); POC - TROPONIN <0.05 ng/mL (<=0.05)
[2016-12-11 22:59] LABS: ALBUMIN SERUM 3.7 g/dL (3.5-5.0); ALKALINE PHOSPHATASE 95 U/L (32-92); ALT (SGPT) 31 U/L (10-40); AST (SGOT) 29 U/L (10-42); BILIRUBIN,TOTAL 0.4 mg/dL (0.2-2.0); BLOOD UREA NITROGEN 11 mg/dL (9-23); BUN/CREATININE RATIO 12.22; CALCIUM SERUM 8.8 mg/dL (8.4-10.2); CARBON DIOXIDE 24 mmol/L (22-31); CHLORIDE 106 mmol/L (100-111); CREATININE SERUM 0.9 mg/dL (0.6-1.4); GLOM FILT RATE Estimated 84.7 mL/min (>60); GLUCOSE FASTING 98 mg/dL (70-110); PROTEIN TOTAL SERUM 7.6 g/dL (6.0-8.3); SODIUM 137 mmol/L (135-145)
[2016-12-11 23:05] LABS: ALCOHOL BLOOD <5 mg/dL (0); BILIRUBIN, DIRECT <0.1 mg/dL (0.0-0.2); BILIRUBIN,INDIRECT 0.3 mg/dL (0.0-0.9)
[2016-12-11 23:38] LABS: URINE SOURCE CLEAN CATCH
[2016-12-11 23:55] LABS: URINE APPEARANCE CLOUDY; URINE BILIRUBIN NEG (NEG); URINE BLOOD NEG (NEG); URINE COLOR YELLOW; URINE GLUCOSE NEG (NEG); URINE KETONE NEG (NEG); URINE LEUKOCYTE ESTERASE NEG (NEG); URINE NITRATE NEG (NEG); URINE PROTEIN NEG (NEG); URINE SPECIFIC GRAVITY 1.019 (1.003-1.035)
[2016-12-12 00:02] LABS: CULTURE INDICATED? NO
[2016-12-12 00:07] LABS: AMPHETAMINE NEG (NEG); BARBITURATES NEG (NEG); BENZODIAZEPINES POS (NEG); COCAINE NEG (NEG); MARIJUANA NEG (NEG); OPIATES NEG (NEG); TRICYCLIC ANTIDEPRESSANTS POS (NEG); U METHADONE NEG (NEG)
[2016-12-12] MEDS ORDERED: TIZANIDINE HCL4 M1 PO (01:50)
[2016-12-12] MEDS ORDERED: PROZAC40 M1 PO (01:51)
[2016-12-12] MEDS ORDERED: KLONOPIN0.5 MG PO (01:52)
[2016-12-12] MEDS ORDERED: CLINORIL (01:54)
[2016-12-12] MEDS ORDERED: GABAPENTIN400 M2 (01:54)
[2016-12-12] MEDS ORDERED: VITAMIN D250000 UNIT PO (05:05)
[2016-12-12] MEDS ORDERED: SEROQUEL400 MG PO (05:07)
[2016-12-12 06:48] LABS: BASOPHIL# 0.1 X10e3 (0-0.3); BASOPHIL% 1.1 % (0-2.5); EOSINOPHIL# 0.6 X10e3 (0-0.7); HEMATOCRIT 39.3 % (35.0-45.0); HEMOGLOBIN 12.6 gm/dL (12.0-16.0); LYMPHOCYTE# 2.7 X10e3 (1.0-3.5); LYMPHOCYTE% 24.5 % (17.0-45.0); MEAN CELL VOLUME 92.1 FL (83-96); MEAN CORPUSCULAR HEMOGLOBIN 29.6 PG (28-34); MEAN CORPUSCULAR HGB CONC 32.1 g/dL (30-36); MONOCYTE# 1.1 X10e3 (0-1.0); MONOCYTE% 9.5 % (3.0-12.0); NEUTROPHIL# 6.7 X10e3 (1.5-7.1); NEUTROPHIL% 59.9 % (40-75); PLATELET COUNT 236 X10e3 (140-420); RED BLOOD COUNT 4.27 X10e (3.90-5.30); RED CELL DISTRIBUTION WIDTH 14.6 % (11.0-15.5); WHITE BLOOD COUNT 11.1 X10e3 (4.0-10.5)
[2016-12-12 06:49] LABS: DIFF IND NO
[2016-12-12 07:36] LABS: BUN/CREATININE RATIO 15.71; CALCIUM SERUM 8.9 mg/dL (8.4-10.2); CREATININE SERUM 0.7 mg/dL (0.6-1.4); GLOM FILT RATE Estimated 114.6 mL/min (>60); POTASSIUM 3.5 mmol/L (3.5-5.1)
[2016-12-12 09:36] LABS: %MB 0.9 % (0.0-4.0); MB 16.8 ng/ml
[2016-12-12] MEDS ORDERED: PRILOSEC PO (12:42)
[2016-12-12] MEDS ORDERED: TOPAMAX PO (12:46)
[2016-12-12] MEDS ORDERED: WALGREENS (12:46)
[2016-12-13 07:31] LABS: BASOPHIL# 0.1 X10e3 (0-0.3); BASOPHIL% 1.1 % (0-2.5); EOSINOPHIL# 0.6 X10e3 (0-0.7); EOSINOPHIL% 6.1 % (0.0-7.0); HEMATOCRIT 34.2 % (35.0-45.0); HEMOGLOBIN 11.2 gm/dL (12.0-16.0); LYMPHOCYTE# 3.2 X10e3 (1.0-3.5); LYMPHOCYTE% 34.2 % (17.0-45.0); MEAN CELL VOLUME 91.9 FL (83-96); MEAN CORPUSCULAR HEMOGLOBIN 30.1 PG (28-34); MEAN CORPUSCULAR HGB CONC 32.7 g/dL (30-36); MEAN PLATELET VOLUME 8.8 FL (6.5-11.5); MONOCYTE# 0.7 X10e3 (0-1.0); MONOCYTE% 7.2 % (3.0-12.0); NEUTROPHIL# 4.8 X10e3 (1.5-7.1); NEUTROPHIL% 51.4 % (40-75); PLATELET COUNT 229 X10e3 (140-420); RED BLOOD COUNT 3.72 X10e (3.90-5.30); RED CELL DISTRIBUTION WIDTH 14.7 % (11.0-15.5); WHITE BLOOD COUNT 9.4 X10e3 (4.0-10.5)
[2016-12-13 07:48] LABS: ALBUMIN SERUM 2.8 g/dL (3.5-5.0); ALKALINE PHOSPHATASE 76 U/L (32-92); ALT (SGPT) 22 U/L (10-40); AST (SGOT) 21 U/L (10-42); BLOOD UREA NITROGEN 7 mg/dL (9-23); BUN/CREATININE RATIO 11.66; CALCIUM SERUM 7.8 mg/dL (8.4-10.2); CARBON DIOXIDE 20 mmol/L (22-31); CHLORIDE 114 mmol/L (100-111); CPK (CREATINE PHOSPHOKINASE) 723 IU/L (26-140); CREATININE SERUM 0.6 mg/dL (0.6-1.4); GLOM FILT RATE Estimated 120.6 mL/min (>60); GLUCOSE FASTING 74 mg/dL (70-110); POTASSIUM 3.7 mmol/L (3.5-5.1); PROTEIN TOTAL SERUM 5.6 g/dL (6.0-8.3); SODIUM 139 mmol/L (135-145)
[2016-12-13 07:50] LABS: BILIRUBIN,TOTAL <0.1 mg/dL (0.2-2.0)
[2016-12-13 07:57] LABS: DIFF IND NO
[2016-12-13] MEDS ORDERED: NICOTINE PATCH1 EAC1 TOP (14:39)
[2016-12-13] MEDS ORDERED: CYANOCOBAL1000 MCG/M INJ (14:40)
[2016-12-13] MEDS ORDERED: TUMS500 MG PO (14:40)
== END 2016-12-13 14:58 | disposition home health service (06) | DRG 558 ==
LOC: CED 20:38 → CEDOF 12-12 01:32 → CED 12-12 01:43 → C5B 12-12 03:27 → CEDOF 12-12 03:27 → C5B 12-12 07:21
PROVIDERS: Emergency Medicine; Internal Medicine
DX: M62.82 Rhabdomyolysis (principal); E87.2 Acidosis; E44.1 Mild protein-calorie malnutrition; E83.51 Hypocalcemia; M41.9 Scoliosis, unspecified; E53.8 Deficiency of other specified B group vitamins; G89.29 Other chronic pain; M54.9 Dorsalgia, unspecified; F32.9 Major depressive disorder, single episode, unspecified; E66.01 Morbid (severe) obesity due to excess calories; E03.9 Hypothyroidism, unspecified; J44.9 Chronic obstructive pulmonary disease, unspecified; Z91.5 Personal history of self-harm; Z90.49 Acquired absence of other specified parts of digestive tract; F17.210 Nicotine dependence, cigarettes, uncomplicated; Z82.49 Family history of ischemic heart disease and other diseases of the circulatory system
CPT/HCPCS: 36415; 70450; 72100; 74176; 80048; 80053; 80076; 80307; 81003; 82550; 82553; 82607; 82947; 84443; 84484; 84703; 85025; 93005; 96360; 97162; 97165; 99285; G0480; J1650